=== PATIENT | male | born 1970 | race Caucasian/White ===

== ENCOUNTER → 2018-08-01 | Outpatient (CLI) | payer BC | LOC: ZCOL.LAB 10:28 | DX: E11.621 Type 2 diabetes mellitus with foot ulcer (principal) ==

== ENCOUNTER 2018-08-22 12:57 | Inpatient (IN) | payer BC ==
[~2018-08-22] VITALS: Ht 184.2 cm; Wt 83.9 kg
[~2018-08-22 12:57] MED LIST: ALEVE 220MG220 MG PO; CUBICIN 500MG500 MG IV; FARXIGA5 PO; FLAGYL500 MG PO; HUMALOG100 U/ML SQ; LANTUS SOLOS100 U/ML SQ; OMNICEF 300MG300 MG PO
[2018-09-08] VITALS (13 sets, daily range): BP systolic 120–146; BP diastolic 74–98; PULSE 85–95; TEMP 98.3–99.5
--- NOTE | 2018-09-08 08:16 | NUR ---
Patient arrives to pre-op SDC room 1. He ambulates with steady giat. His left foot has a bandage covering his wounds. He is alert and oriented. Procedure confirmed, denies any questions, and verbalizes understanding. VSS and WNL on room air. Breath sounds clear bilaterally to auscultation. Clear S1S2 heart tones heard with regular rate noted. No edema noted. Patient has numbness/tingling in all four extremities at baseline. Chronic pain in left foot. +2 radial, PT, and DP pulses noted. PERRLA. Mom is at the bedside. Patient has a single lumen PICC line in his right arm. PICC flushes easily and has positive blood return. PICC hooked to IVF for surgery. Call light usage taught and within reach.
--- NOTE | 2018-09-08 08:27 | NUR ---
Patient resting comfortably in room. Denies any needs at this time.
--- NOTE | 2018-09-08 08:49 | NUR ---
Patient to PACU with anesthesia.
--- NOTE | 2018-09-08 11:50 | NUR ---
PATIENT ADMITED INTO ROOM 348 POSST OP LEFT BKA. LLE DRESSING IS CD&I WITH ACEWRAP, IMMOBILIZER AND ICE PACK INPLACE. PATIENT DENIES PAIN TO LLE. PATIENT HAS HX OF DM WITH AN AIC OF 14. POST OP BS OF 128. PATIENT REQUESTING POP, GAVE DIET COKE. NO CARNEY INPLACE. NO C/O N/V. IV FLUIDS INFUSING INTO RIGHT PICC LINE. HEAD TO TOE ASSESSMENT COMPLETE. MOTHER AT BEDSIDE. ORIENTED TO ROOM. CALL LIGHT IN REACH.
--- NOTE | 2018-09-09 01:06 | NUR ---
Patient doing well this shift. Pain started about 2100. Started with one norco, and this was not effective, so the second dose was given. Patient stated pain at 4/10. Patient requested more pain medication. Oxycodone 10mg given. Noted to be effective. Patient resting quietly with eyes closed. Will continue to monitor.
[2018-09-09 03:32] VITALS: BP 149/79; PULSE 99; TEMP 98.3
--- NOTE | 2018-09-09 08:00 | NUR ---
PATIENT IS RESTING IN BED THIS MORNING. PATIENT IS A&OX4. VSS. BOWEL SOUNDS ACTIVE ALL FOUR QUADRANTS. PATIENT TOLERATING DIET WITHOUT ANY COMPLAINTS OF N/V. LEFT BKA DRESSED WITH BULKY GAUZE AND EBER WRAP DRESSING IS CD&I. KNEE IMMOBILIZER IN PLACE. RLE PEDAL PULSE STRONG. UNSTAGED HEALING ULCER TO RIGHT GREAT TOE WITH A HYPAFIX DRESSING IN PLACE AND CD&I. POSITIVE FEMORAL PULSE TO LEFT GROIN. PICC LINE TO E. CALL LIGHT WITHIN REACH. NO NEEDS AT THIS TIME.
[2018-09-09 08:02] VITALS: BP 150/88; PULSE 99; TEMP 99.7
--- NOTE | 2018-09-09 11:19 | NUR ---
REPORT GIVEN TO THELMA VIRAMONTES.
[2018-09-09 11:33] VITALS: BP 147/87; PULSE 98; TEMP 99.7
--- NOTE | 2018-09-09 11:53 | NUR ---
REPORT FROM MARIYA RENEE.
--- NOTE | 2018-09-09 14:21 | NUR ---
Initial visit; Patient and his mom thanked for looking in on Bandar and keeping him in her prayers.
--- NOTE | 2018-09-09 14:39 | NUR ---
SW met with patient about discharge planning. Patient reports he normally lives independently at home with his life partner, but he is planning to stay at his mothers house for a while. Patient's PCP is Dr Luz Marina Ashby and he obtains prescriptions from [facility] in [place]. Patient does not normally use any DME or home health services. Patient reports his friend is loaning him a wheelchair but the walker he was given is not tall enough for him. SW reported she can assist him with obtaining the correct sized walker. Patient was provided DME [employer] choices. Patient chose [facility] and signed choice form. Patient does not require any post acute rehab but he will start outpatient PT/OT once Orth[facility] orders it. Patient has been cleared to discharge later today. SW faxed walker order to [facility]. They will deliver before discharge.
[2018-09-09 15:33] VITALS: BP 140/86; PULSE 101; TEMP 100.2
[2018-09-09] MEDS ORDERED: NORCO 325 MG-7.1 TAB PO (15:56)
[2018-09-09] MEDS ORDERED: ROXICODONE 55 MG/TAB PO (15:57)
[2018-09-09] MEDS ORDERED: SENNA-S 50 MG-81 TAB PO (15:57)
--- NOTE | 2018-09-09 17:23 | NUR ---
DRESSING CHANGE COMPLETED AFTER PICC LINE REMOVAL BY SID WORM GROWER. PT TOLERATED WELL. DRESSING CHANGE WITH 4X4 ABS, SOFT ROLL AND EBER. DISCHARGE INSTRUCTIONS REVIEWED WITH PATIENT AND FAMILY. PT TAKEN BY WHEEL CHAIR TO FRONT.
== END 2018-09-09 17:27 | disposition home or self-care (01) | DRG 240 ==
LOC: INPTSU 09-08 07:27 → SURG 09-08 07:27
PROVIDERS: ADMIT Orthopaedic Surgery
PROC: 02PY33Z Removal of Infusion Device from Great Vessel, Percutaneous Approach (ICD-10-PCS; 2018-09-08)
PROC: 0Y6J0Z2 Detachment at Left Lower Leg, Mid, Open Approach (ICD-10-PCS; principal; 2018-09-08 09:30)
DX: E11.52 Type 2 diabetes mellitus with diabetic peripheral angiopathy with gangrene (principal); L97.426 Non-pressure chronic ulcer of left heel and midfoot with bone involvement without evidence of necrosis; L03.116 Cellulitis of left lower limb; I96 Gangrene, not elsewhere classified; S81.801A Unspecified open wound, right lower leg, initial encounter; F41.9 Anxiety disorder, unspecified; E11.42 Type 2 diabetes mellitus with diabetic polyneuropathy; D64.9 Anemia, unspecified; F17.210 Nicotine dependence, cigarettes, uncomplicated; F32.9 Major depressive disorder, single episode, unspecified; Z79.4 Long term (current) use of insulin; Z86.19 Personal history of other infectious and parasitic diseases; Z90.89 Acquired absence of other organs; Z83.3 Family history of diabetes mellitus
CPT/HCPCS: J0690; J1650; J1815; J1885; J2250; J2370; J2405; J2704; J2765; J2795; J3010; J7030; L1830

== ENCOUNTER 2018-09-08 07:00 | Outpatient (RCR) | payer BC ==
[2018-08-08 12:20] VITALS: BP 114/76; PULSE 98; TEMP 99.3
[2018-08-08 13:26] LABS: MEAN CELL VOLUME 84 fl (80.0-100.0); MEAN CORPUSCULAR HGB CONC 33 g/dl (33.0-37.0); MEAN PLATELET VOLUME 10.7 fl (7.4-10.4); PLATELET COUNT 279 K/mm3 (130-400); RED BLOOD COUNT 3.55 M/mm3 (4.20-5.60); REDCELL DISTRIBUTION WIDTH-CV 13.2 % (11.5-14.5)
[2018-08-08 13:30] LABS: HEMATOCRIT 29.8 % (42.0-52.0); HEMOGLOBIN 9.8 g/dl (13.5-18.0); MEAN CORPUSCULAR HEMOGLOBIN 28 pg (27.0-31.0)
[2018-08-08 13:39] LABS: ALANINE AMINOTRANSFERASE 15 U/L (21-72); ALBUMIN 3.4 gm/dL (3.5-5.0); ALKALINE PHOSPHATASE 133 U/L (50-136); ANION GAP 7 mmol/L (7-16); AST,SGOT 33 U/L (15-37); BILIRUBIN,TOTAL 0.4 mg/dL (0.0-1.0); BLOOD UREA NITROGEN 22 mg/dL (9-20); C-REACTIVE PROTEIN 3.1 mg/dL (0.0-0.9); CARBON DIOXIDE 30 mmol/L (22-30); CHLORIDE 95 mmol/L (98-107); CREATININE, serum 0.61 (0.66-1.25); GLUCOSE 280 mg/dL (74-106); POTASSIUM 4.3 mmol/L (3.4-5.0); SODIUM 133 mmol/L (137-145)
[2018-08-08 13:42] LABS: CREATINE KINASE < 20 U/L (55-170)
[2018-08-08 13:54] LABS: ERYTHROCYTE SEDIMENTATION RATE > 140 mm/hr (0-15)
[2018-08-09 08:45] VITALS: BP 118/78; PULSE 96; TEMP 99
[2018-08-10 08:51] VITALS: BP 109/76; PULSE 89; TEMP 98.5
[2018-08-11 08:40] VITALS: BP 99/64; PULSE 88; TEMP 98.6
[2018-08-12 08:30] VITALS: BP 104/63; PULSE 87; TEMP 98.2
[2018-08-13 09:00] VITALS: BP 94/59; PULSE 87; TEMP 98.2
[2018-08-14 08:45] VITALS: BP 108/70; PULSE 90; TEMP 99.1
[2018-08-15 08:44] LABS: MEAN CELL VOLUME 86 fl (80.0-100.0); MEAN CORPUSCULAR HGB CONC 32 g/dl (33.0-37.0); MEAN PLATELET VOLUME 10.6 fl (7.4-10.4); PLATELET COUNT 217 K/mm3 (130-400); RED BLOOD COUNT 3.59 M/mm3 (4.20-5.60); REDCELL DISTRIBUTION WIDTH-CV 13.6 % (11.5-14.5)
[2018-08-15 08:50] LABS: HEMATOCRIT 30.9 % (42.0-52.0); HEMOGLOBIN 9.8 g/dl (13.5-18.0); MEAN CORPUSCULAR HEMOGLOBIN 27 pg (27.0-31.0)
--- NOTE | 2018-08-15 08:50 | NUR ---
PICC intact right upper arm with sterile dressing change done with insertion site cleansed with chloraprep x 1, chlorhexidine impregnated disk applied, skin prep, stat lock, and tegaderm applied. no signs or sypmptoms of IV complications noted. no concerns voiced. re-wrapped with abena to protect catheter.
[2018-08-15 09:03] LABS: ALANINE AMINOTRANSFERASE 10 U/L (21-72); ALBUMIN 3.3 gm/dL (3.5-5.0); ALKALINE PHOSPHATASE 116 U/L (50-136); ANION GAP 7 mmol/L (7-16); AST,SGOT 22 U/L (15-37); BILIRUBIN,TOTAL 0.3 mg/dL (0.0-1.0); BLOOD UREA NITROGEN 15 mg/dL (9-20); C-REACTIVE PROTEIN 1.9 mg/dL (0.0-0.9); CALCIUM 8.8 mg/dL (8.4-10.2); CARBON DIOXIDE 31 mmol/L (22-30); CHLORIDE 100 mmol/L (98-107); CREATININE, serum 0.54 (0.66-1.25); GLUCOSE 299 mg/dL (74-106); POTASSIUM 4.2 mmol/L (3.4-5.0); SODIUM 138 mmol/L (137-145); TOTAL PROTEIN 7.6 gm/dL (6.4-8.2)
[2018-08-15 09:04] LABS: CREATINE KINASE < 20 U/L (55-170)
[2018-08-15 09:12] VITALS: BP 119/74; PULSE 89; TEMP 98.6
[2018-08-15 09:13] LABS: ERYTHROCYTE SEDIMENTATION RATE > 140 mm/hr (0-15)
[2018-08-16 08:52] VITALS: BP 140/87; PULSE 88; TEMP 98.1
[2018-08-17 09:12] VITALS: BP 136/74; PULSE 88; TEMP 97.9
[2018-08-18 08:30] VITALS: BP 124/72; PULSE 93; TEMP 98.7
[2018-08-19 09:17] VITALS: BP 124/77; PULSE 85; TEMP 97.8
[2018-08-20 09:13] VITALS: BP 98/55; PULSE 92; TEMP 98.7
[2018-08-21 08:43] VITALS: BP 128/83; PULSE 85; TEMP 98.2
--- NOTE | 2018-08-21 09:00 | NUR ---
PICC intact right upper arm. With sterile technique right upper arm PICC dressing change done with insertion site cleansed with ChloraPrep 1, chlorhexidine impregnated disc applied, skin prep, StatLock, and Tegaderm applied. No signs or symptoms of IV complications noted. No concerns voiced. Arm wrapped with Ronen to protect catheter. Patient to continue with cares and express unit.
[2018-08-22 09:27] VITALS: BP 106/64; PULSE 92; TEMP 98.5
[2018-08-22 09:54] LABS: HEMOGLOBIN 11.3 g/dl (13.5-18.0); MEAN CELL VOLUME 87 fl (80.0-100.0); MEAN CORPUSCULAR HEMOGLOBIN 27 pg (27.0-31.0); MEAN CORPUSCULAR HGB CONC 32 g/dl (33.0-37.0); MEAN PLATELET VOLUME 11.4 fl (7.4-10.4); PLATELET COUNT 219 K/mm3 (130-400); RED BLOOD COUNT 4.13 M/mm3 (4.20-5.60); REDCELL DISTRIBUTION WIDTH-CV 14.6 % (11.5-14.5)
[2018-08-22 10:07] LABS: ALANINE AMINOTRANSFERASE 9 U/L (21-72); ALBUMIN 3.8 gm/dL (3.5-5.0); ALKALINE PHOSPHATASE 96 U/L (50-136); ANION GAP 8 mmol/L (7-16); AST,SGOT 32 U/L (15-37); BILIRUBIN,TOTAL 0.4 mg/dL (0.0-1.0); BLOOD UREA NITROGEN 25 mg/dL (9-20); C-REACTIVE PROTEIN 0.6 mg/dL (0.0-0.9); CALCIUM 9.4 mg/dL (8.4-10.2); CARBON DIOXIDE 30 mmol/L (22-30); CHLORIDE 98 mmol/L (98-107); CREATININE, serum 0.61 (0.66-1.25); GLUCOSE 337 mg/dL (74-106); POTASSIUM 4.8 mmol/L (3.4-5.0); SODIUM 136 mmol/L (137-145); TOTAL PROTEIN 8.4 gm/dL (6.4-8.2)
[2018-08-22 10:18] LABS: CREATINE KINASE < 20 U/L (55-170)
[2018-08-22 10:23] LABS: HEMATOCRIT 35.9 % (42.0-52.0)
[2018-08-22 11:44] LABS: ERYTHROCYTE SEDIMENTATION RATE 63 mm/hr (0-15)
[2018-08-23 08:57] VITALS: BP 118/89; PULSE 88; TEMP 98.6
[2018-08-24 08:45] VITALS: BP 118/89; PULSE 88; TEMP 98.6
[2018-08-25 08:36] VITALS: BP 127/78; PULSE 88; TEMP 98.6
[2018-08-26 08:43] VITALS: BP 110/67; PULSE 86; TEMP 98.1
[2018-08-27 08:56] VITALS: BP 105/71; PULSE 88; TEMP 98.5
[2018-08-28 08:38] VITALS: BP 97/62; PULSE 93; TEMP 97.9
--- NOTE | 2018-08-29 08:35 | NUR ---
PICC intact right upper arm. With sterile technique right upper arm PICC dressing change done with insertion site cleansed with ChloraPrep 1, chlorhexidine impregnated disc applied, skin prep, StatLock, and Tegaderm applied. No signs or symptoms of IV complications noted. No concerns voiced. Arm wrapped with Ronen to protect catheter. Continue with cares in the express unit. Patient voiced understanding of instructions.
[2018-08-29 08:37] LABS: BASO % 0.7 % (0.0-2.0); EOS # 0.2 (0.0-0.7); EOS % 4.6 % (0-4.0); GRAN # 2.4 (1.4-6.5); GRAN % 58.1 % (42.2-75.2); HEMATOCRIT 37.4 % (42.0-52.0); HEMOGLOBIN 11.5 g/dl (13.5-18.0); LYMPH # 1.1 (1.2-3.4); LYMPH % 26.9 % (20.0-51.0); MEAN CELL VOLUME 88 fl (80.0-100.0); MEAN CORPUSCULAR HEMOGLOBIN 27 pg (27.0-31.0); MEAN CORPUSCULAR HGB CONC 31 g/dl (33.0-37.0); MEAN PLATELET VOLUME 11.6 fl (7.4-10.4); MONO # 0.4 (0.1-0.6); MONO % 9.2 % (1.7-9.3); PLATELET COUNT 162 K/mm3 (130-400); RED BLOOD COUNT 4.24 M/mm3 (4.20-5.60); REDCELL DISTRIBUTION WIDTH-CV 14.6 % (11.5-14.5)
[2018-08-29 08:46] LABS: PROTHROMBIN TIME 12.1 SECONDS (9.7-12.8)
[2018-08-29 08:51] LABS: ALANINE AMINOTRANSFERASE 12 U/L (21-72); ALBUMIN 3.7 gm/dL (3.5-5.0); ALKALINE PHOSPHATASE 72 U/L (50-136); ANION GAP 6 mmol/L (7-16); AST,SGOT 32 U/L (15-37); BILIRUBIN,TOTAL 0.4 mg/dL (0.0-1.0); BLOOD UREA NITROGEN 22 mg/dL (9-20); CARBON DIOXIDE 29 mmol/L (22-30); CHLORIDE 106 mmol/L (98-107); CREATINE KINASE 28 U/L (55-170); CREATININE, serum 0.55 (0.66-1.25); GLUCOSE 181 mg/dL (74-106); POTASSIUM 4.7 mmol/L (3.4-5.0); SODIUM 141 mmol/L (137-145); TOTAL PROTEIN 7.8 gm/dL (6.4-8.2)
[2018-08-29 08:57] LABS: IRON,SERUM 78 ug/dL (35-150)
[2018-08-29 08:59] LABS: ERYTHROCYTE SEDIMENTATION RATE 47 mm/hr (0-15)
[2018-08-29 09:06] LABS: TOTAL IRON BINDING CAPACITY 283 ug/dL (261-462)
[2018-08-29 09:07] VITALS: BP 106/67; PULSE 88; TEMP 98.5
[2018-08-29 09:16] LABS: COLLECTION METHOD CLEAN CATCH
[2018-08-29 09:21] LABS: C-REACTIVE PROTEIN < 0.5 mg/dL (0.0-0.9)
[2018-08-29 09:22] LABS: MUCOUS Present /lpf; PH 5 (5-8); SQUAMOUS EPITHELIAL None Seen /hpf; URINE APPEARANCE Clear; URINE BACTERIA None Seen /hpf; URINE BILIRUBIN Negative (NEGATIVE); URINE BLOOD Negative (NEGATIVE); URINE COLOR Yellow; URINE GLUCOSE 3+ (NEGATIVE); URINE KETONE Negative (NEGATIVE); URINE LEUKOCYTE ESTERASE Negative (NEGATIVE); URINE NITRATE Negative (NEGATIVE); URINE PROTEIN(semi-quant) Negative (NEGATIVE); URINE RBC 0-2 /hpf; URINE UROBILINOGEN Negative (NEGATIVE)
[2018-08-29 09:33] LABS: FERRITIN 199 ng/mL (18-464)
[2018-08-29 15:55] LABS: FOLATE (FOLIC ACID) 15.2 ng/mL (7.0-31.4)
[2018-08-30 08:31] VITALS: BP 117/77; PULSE 93; TEMP 97.9
[2018-08-31 08:31] VITALS: BP 107/64; PULSE 94; TEMP 97.8
[2018-09-01 08:43] VITALS: BP 114/67; PULSE 85; TEMP 98.1
[2018-09-02 08:43] VITALS: BP 128/80; PULSE 90; TEMP 98.1
[2018-09-03 08:46] VITALS: BP 120/78; PULSE 80; TEMP 98.2
[2018-09-04 08:30] VITALS: BP 115/81; PULSE 92; TEMP 98
[2018-09-05 08:42] VITALS: BP 129/82; PULSE 88; TEMP 98.2
[2018-09-05 08:50] LABS: HEMOGLOBIN 11.5 g/dl (13.5-18.0); MEAN CELL VOLUME 88 fl (80.0-100.0); MEAN CORPUSCULAR HEMOGLOBIN 28 pg (27.0-31.0); MEAN CORPUSCULAR HGB CONC 32 g/dl (33.0-37.0); MEAN PLATELET VOLUME 12.5 fl (7.4-10.4); PLATELET COUNT 115 K/mm3 (130-400); RED BLOOD COUNT 4.15 M/mm3 (4.20-5.60); REDCELL DISTRIBUTION WIDTH-CV 14.4 % (11.5-14.5)
[2018-09-05 08:52] LABS: HEMATOCRIT 36.4 % (42.0-52.0)
[2018-09-05 09:02] LABS: ALANINE AMINOTRANSFERASE 11 U/L (21-72); ALBUMIN 3.8 gm/dL (3.5-5.0); ALKALINE PHOSPHATASE 63 U/L (50-136); ANION GAP 8 mmol/L (7-16); AST,SGOT 24 U/L (15-37); BILIRUBIN,TOTAL 0.5 mg/dL (0.0-1.0); BLOOD UREA NITROGEN 28 mg/dL (9-20); CALCIUM 9.1 mg/dL (8.4-10.2); CARBON DIOXIDE 27 mmol/L (22-30); CHLORIDE 102 mmol/L (98-107); CREATINE KINASE 30 U/L (55-170); CREATININE, serum 0.63 (0.66-1.25); POTASSIUM 4.5 mmol/L (3.4-5.0); SODIUM 137 mmol/L (137-145); TOTAL PROTEIN 7.5 gm/dL (6.4-8.2)
[2018-09-05 09:20] LABS: ERYTHROCYTE SEDIMENTATION RATE 34 mm/hr (0-15)
[2018-09-05 09:43] LABS: C-REACTIVE PROTEIN < 0.5 mg/dL (0.0-0.9)
[2018-09-05 09:44] LABS: GLUCOSE 420 mg/dL (74-106)
[2018-09-06 08:48] VITALS: BP 121/84; PULSE 89; TEMP 97.8
[2018-09-07 08:38] VITALS: BP 97/64; PULSE 91; TEMP 97.9
[~2018-09-08] VITALS: Ht 185.4 cm; Wt 79.0 kg
[2018-09-08 06:56] VITALS: BP 122/80; PULSE 93; TEMP 98.1
--- NOTE | 2018-09-08 08:35 | NUR ---
Per pt report he will be in hospital post procedure.
[2018-09-09] MEDS ORDERED: NORCO 325 MG-7.1 TAB PO (15:56)
[2018-09-09] MEDS ORDERED: SENNA-S 50 MG-81 TAB PO (15:57)
[2018-09-09] MEDS ORDERED: ROXICODONE 55 MG/TAB PO (15:57)
== END 2018-09-08 08:36 | disposition home or self-care (01) ==
LOC: EUO 07:00
PROVIDERS: Family Medicine; Nurse Practitioner
DX: T14.8XXA Other injury of unspecified body region, initial encounter (principal); M86.9 Osteomyelitis, unspecified; E13.621 Other specified diabetes mellitus with foot ulcer
CPT/HCPCS: C1751; J0878

== ENCOUNTER → 2019-05-27 | Outpatient (CLI) | payer BC ==
[~2019-05-27] MED LIST changes: +NORCO 325 MG-7.1 TAB PO; +ROXICODONE 55 MG/TAB PO; +SENNA-S 50 MG-81 TAB PO
== END ==
LOC: ZCOL.LAB 13:44
DX: S88.112A Complete traumatic amputation at level between knee and ankle, left lower leg, initial encounter (principal); E11.9 Type 2 diabetes mellitus without complications; Z87.39 Personal history of other diseases of the musculoskeletal system and connective tissue

== ENCOUNTER → 2019-06-04 | Outpatient (CLI) | payer BC | LOC: COL.RAD 07:29 | DX: S88.112A Complete traumatic amputation at level between knee and ankle, left lower leg, initial encounter (principal); M86.162 Other acute osteomyelitis, left tibia and fibula; E11.621 Type 2 diabetes mellitus with foot ulcer | CPT/HCPCS: A9585 ==

== ENCOUNTER 2019-07-15 08:57 | Day surgery (SDC) | payer BC ==
[~2019-07-15] VITALS: Ht 185.4 cm; Wt 85.5 kg
[2019-07-15] VITALS (7 sets, daily range): BP systolic 98–141; BP diastolic 72–83; PULSE 87–102; TEMP 97.2–98.9
[~2019-07-15 08:57] MED LIST changes: +AMBIEN 10MG10 MG PO; +CLEOCIN HCL300 MG PO; +CYMBALTA 60MG60 MG PO; +D3-5050000 IU PO; +JARDIANCE10 PO; +ULTRAM 50MG TAB50 MG PO; +ZANAFLEX 4MG TAB4 MG PO
[2019-07-15] MEDS ORDERED: PRINIVIL5 MG PO (09:19)
[2019-07-15] MEDS ORDERED: JARDIANCE10 PO (09:47)
[2019-07-15] MEDS ORDERED: CEPHALEXIN500 M1 PO (09:49)
[2019-07-15] MEDS ORDERED: NORCO 325 MG-51 TAB PO (11:53)
--- NOTE | 2019-07-15 13:25 | NUR ---
Patient returns to room 6 per cart and is awake and alert. Ronen wrap dressing clean and dry on the left AKA site and elevated on pillow. Ice on the incisional area. IV fluids infusing and site is free of redness. Patient sipping on diet Pepsi. Temp 97.6. Sats 100 on 2L per nasal cannula. Siderails up x2 and call light in reach.
--- NOTE | 2019-07-15 13:40 | NUR ---
Room air sats 100%. Denies pain or nausea. Talking on the phone.
--- NOTE | 2019-07-15 13:55 | NUR ---
Resting and offers no complaints of discomfort.
--- NOTE | 2019-07-15 14:10 | NUR ---
Continues to rest without complaints of discomfort. Sipping on diet Pepsi and eating crackers.
--- NOTE | 2019-07-15 14:25 | NUR ---
States that he is beginning to have some soreness at the incisional site. Elevated on pillow and ice to the incisional area.
--- NOTE | 2019-07-15 14:38 | NUR ---
[place] 7.5mg one tab for pain at 3/10. Dressing clean and dry.
--- NOTE | 2019-07-15 14:40 | NUR ---
IV discontinued. Site is free of redness.
--- NOTE | 2019-07-15 14:45 | NUR ---
Patient dresses self. Dressing remains clean and dry. Dismissal instructions given and voices understanding of home cares and follow up on 07/22/2019 in the office.
--- NOTE | 2019-07-15 14:55 | NUR ---
Patient dismissed to home driven by mother and taken to the front door per wheelchair and assisted into vehicle by this RN with instructions in hand. Provided script for [facility].
== END 2019-07-15 14:55 | disposition home or self-care (01) ==
LOC: SDCO 08:57
DX: T87.81 Dehiscence of amputation stump (principal); E11.9 Type 2 diabetes mellitus without complications; F17.210 Nicotine dependence, cigarettes, uncomplicated; Z79.4 Long term (current) use of insulin; Z90.89 Acquired absence of other organs; Z89.612 Acquired absence of left leg above knee; Z80.9 Family history of malignant neoplasm, unspecified
CPT/HCPCS: J0690; J1100; J1170; J2370; J2405; J2704; J3010; J7030

== ENCOUNTER → 2020-02-01 | Outpatient (CLI) | payer BC ==
[~2020-02-01] MED LIST changes: +AMOXICILLIN 8751 TAB PO; +CEPHALEXIN500 M1 PO; +DOXYCYCLINE HY100 MG PO; +LAMICTAL 100MG100 MG PO; +LANTUS100 U/ML SQ; +NORCO 325 MG-51 TAB PO; +PERCOCET 325 MG1 TA2 PO; +PRINIVIL5 MG PO; +ROCEPHIN 2GM VIAL21 IV
== END ==
LOC: ZCOL.LAB 16:05
DX: S61.401A Unspecified open wound of right hand, initial encounter (principal)

== ENCOUNTER 2020-02-02 11:34 | Inpatient (IN) | payer BC, MEDICAID ==
[~2020-02-02] VITALS: Ht 182.9 cm; Wt 88.6 kg
[~2020-02-02 11:34] MED LIST changes: -AMOXICILLIN 8751 TAB PO; -DOXYCYCLINE HY100 MG PO; -LAMICTAL 100MG100 MG PO; -LANTUS100 U/ML SQ; -PERCOCET 325 MG1 TA2 PO; -ROCEPHIN 2GM VIAL21 IV
[2020-02-02] MEDS ORDERED: LANTUS100 U/ML SQ (12:19)
[2020-02-02] MEDS ORDERED: AMOXICILLIN 8751 TAB PO (12:19)
[2020-02-02] MEDS ORDERED: LAMICTAL 100MG100 MG PO (12:19)
[2020-02-02] MEDS ORDERED: DOXYCYCLINE HY100 MG PO (12:20)
[2020-02-02 13:14] LABS: BASO % 0.4 % (0.0-2.0); EOS # 0.1 (0.0-0.7); EOS % 1.7 % (0-4.0); GRAN % 76.5 % (42.2-75.2); HEMOGLOBIN 11.9 g/dl (13.5-18.0); LYMPH # 1.2 (1.2-3.4); LYMPH % 15.9 % (20.0-51.0); MEAN CELL VOLUME 86 fl (80.0-100.0); MEAN CORPUSCULAR HEMOGLOBIN 28 pg (27.0-31.0); MEAN CORPUSCULAR HGB CONC 32 g/dl (33.0-37.0); MEAN PLATELET VOLUME 10.3 fl (7.4-10.4); MONO # 0.4 (0.1-0.6); MONO % 4.5 % (1.7-9.3); PLATELET COUNT 229 K/mm3 (130-400); RED BLOOD COUNT 4.29 M/mm3 (4.20-5.60)
[2020-02-02 13:22] LABS: ALBUMIN 3.4 gm/dL (3.5-5.0); BILIRUBIN,TOTAL 0.6 mg/dL (0.0-1.0); C-REACTIVE PROTEIN 3.1 mg/dL (0.0-0.9); CREATININE, serum 0.65 (0.66-1.25); POTASSIUM 4.2 mmol/L (3.4-5.0); TOTAL PROTEIN 7.2 gm/dL (6.4-8.2)
[2020-02-02 13:35] LABS: ERYTHROCYTE SEDIMENTATION RATE 58 mm/hr (0-15)
[2020-02-02] MEDS ORDERED: PERCOCET 325 MG1 TA2 PO ×2 (16:44)
--- NOTE | 2020-02-02 17:20 | NUR ---
Vancomycin Initial Dosing Pharmacy Note Ordering provider: HELIO JIANG Indication/duration: POSSIBLE OSTEO LABS: WBC 7.8, SCr 0.65, CrCl >100 Recommendation: VANCOMYCIN 17 MG/KG Loading dose: 2 grams (IN ED) Maintenance dose: 1.5 grams every 12 hours Trough goal: 15-20 ug/mL. TROUGH 02/03 @1530
[2020-02-02 18:52] VITALS: BP 127/86; PULSE 90; TEMP 98.7
[2020-02-02 18:54] VITALS: BP 127/86; PULSE 90; TEMP 98.7
--- NOTE | 2020-02-02 19:46 | NUR ---
Pt. sitting up in bed at this time. Pt. is A&OX3. assessment complete. INT to lt. hand patent. Pt. denies pain or other needs, call light within reach.
[2020-02-02 20:10] VITALS: BP 141/81; PULSE 89; TEMP 98.8
[2020-02-02 23:52] VITALS: BP 124/77; PULSE 83; TEMP 98.7
[2020-02-03 04:11] VITALS: BP 136/87; PULSE 84; TEMP 98
[2020-02-03 07:48] VITALS: BP 130/79; PULSE 87; TEMP 98.4
--- NOTE | 2020-02-03 14:49 | NUR ---
Initial visit; Patient thanked Rn Occupational Health for looking in on him and offering God's blessings.
[2020-02-03 16:30] VITALS: BP 143/90; PULSE 91; TEMP 98.8
--- NOTE | 2020-02-03 16:56 | NUR ---
CALLED AND LEFT MESSAGE WITH DR. AYALA FOR ID CONSULT.
--- NOTE | 2020-02-03 20:00 | NUR ---
DR AYALA RETURNED CALL FOR CONSULT. NEW ORDERS PLACED FOR ROCEPHIN AND HYUN FORDE.
[2020-02-03 20:30] VITALS: BP 124/76; PULSE 94; TEMP 99.1
--- NOTE | 2020-02-03 20:30 | NUR ---
HS MEDS GIVEN WELL DOSE OF IV ROCEPHIN 2GM, AMBIEN AND ZANAFLEX PO. IS ALERT AND ORIENTED X4. REPORTS ONE LOOSE STOOL. HAS LEFT UPPER ARM PICC, FLUSHES WELL. IS AN AKA ON THE LEFT. INDEPENDENT IN ROOM WITH CRUTCHES. RT WRIST WRAPPED WITH DRSG AND EBER.
[2020-02-04 00:54] VITALS: BP 100/58; PULSE 83; TEMP 98.8
[2020-02-04 04:04] VITALS: BP 121/77; PULSE 88; TEMP 98.4
--- NOTE | 2020-02-04 04:18 | NUR ---
VANCOMYCIN INFUSING TO LEFT PICC WITHOUT PROBLEM. DENIES PAIN TO RIGHT WRIST. EMPTIED URINAL FOR 800CC OF YELLOW URINE.
--- NOTE | 2020-02-04 05:45 | NUR ---
IV Vanco complete, PICC flushed.
[2020-02-04 07:05] LABS: BASO % 0.3 % (0.0-2.0); EOS # 0.1 (0.0-0.7); EOS % 2.1 % (0-4.0); GRAN # 4.6 (1.4-6.5); GRAN % 68.6 % (42.2-75.2); HEMOGLOBIN 11.9 g/dl (13.5-18.0); LYMPH # 1.4 (1.2-3.4); LYMPH % 20.9 % (20.0-51.0); MEAN CELL VOLUME 86 fl (80.0-100.0); MEAN CORPUSCULAR HEMOGLOBIN 28 pg (27.0-31.0); MEAN CORPUSCULAR HGB CONC 33 g/dl (33.0-37.0); MEAN PLATELET VOLUME 10.7 fl (7.4-10.4); MONO # 0.5 (0.1-0.6); MONO % 7.1 % (1.7-9.3); PLATELET COUNT 223 K/mm3 (130-400); RED BLOOD COUNT 4.27 M/mm3 (4.20-5.60); REDCELL DISTRIBUTION WIDTH-CV 13.2 % (11.5-14.5)
[2020-02-04 07:12] LABS: HEMATOCRIT 36.6 % (42.0-52.0)
[2020-02-04 07:25] LABS: CREATININE, serum 0.73 (0.66-1.25); POTASSIUM 4.3 mmol/L (3.4-5.0)
[2020-02-04 08:38] VITALS: BP 142/77; PULSE 86; TEMP 98.6
--- NOTE | 2020-02-04 09:12 | NUR ---
AIVS AT BEDSIDE.
--- NOTE | 2020-02-04 09:20 | NUR ---
Reviewed PICC insertion chest x ray on [facility]. PICC intact with sterile dressing change done with insertion site cleansed with chloraprep x 1, catheter pulled back 3 cm to 2 cm marking on catheter, skin prep, stat lock, chlorhexidine impregnated disk applied, and tegaderm. RN informed.
[2020-02-04 13:37] VITALS: BP 143/88; PULSE 92; TEMP 98.5
--- NOTE | 2020-02-04 14:30 | NUR ---
PATIENT PUSHED CALL LIGHT AND YELLED AT THE SURGICAL CODER ABOUT HIS DISCHARGE. NURSING ENTERED ROOM AND PATIENT STARTED YELLING AT NURSING ABOUT HIS DISCHARGE AND BECAME BELLIGERENT. PATIENT WENT ON AND ON ABOUT HOW "THIS HOSPITAL AND THE DOCTORS ARE HOLDING HIM UP". PATIENT DEMANDING TO LEAVE. NURSING TOLD PATIENT THE PHYSICIAN AND SS WERE WORKING ON ARRANGING OUTPATIENT ANTIBIOTICS. PATIENT DIDN'T SEEM INTERESTED IN ANYTHING NURSING HAD TO SAY, JUST WENT ON TO COMPLAIN ABOUT HOW THIS IS INCONVENIENCING HIM.
--- NOTE | 2020-02-04 15:10 | NUR ---
HOSPITALIST AT BEDSIDE. SEE ORDERS.
[2020-02-04] MEDS ORDERED: ROCEPHIN 2GM VIAL21 IV (15:23)
--- NOTE | 2020-02-04 15:30 | NUR ---
PATIENT APPOLOGIZED TO NURSING FOR HIS BEHAVIOR. PATIENT WAS JUST VERY FRUSTERATED AND SAID HE WAS SORRY FOR TAKING IT OUT ON THE STAFF. NURSING HAPPILY ACCEPTED HIS APPOLOGY. PATIENT HOPING TO DISCHARGE HOME THIS EVENING.
[2020-02-04 15:46] VITALS: BP 119/68; PULSE 86; TEMP 98.6
--- NOTE | 2020-02-04 16:19 | NUR ---
The patient is to discharge home today, 02/03. [facility] met with the patient to complete intake. The patient lives in [place] with his life partner, Cameron. The patient has a left above knee amputation. He has a prosthesis and is independent. The patient's PCP is Dr. Ashby and receives medications from [facility] in [place]. The patient does not have advanced directives in the EMR but is in the process of completing them. The patient will return home and drive himself. The patient is needing IV antibiotics and has been to [facility] in the past and would like to use them again. The patient had a PICC placed. [facility] staffed with RNCM on 02/02 and 02/03. She has not been able to get through to the insurance. She advised for the patient to contact his insurance. [facility] informed the patient to contact his insurance and advised him that he may have out of pocket costs. He stated his mother could assist with cost. [facility] faxed orders to El[facility] with [facility]. She reports everything needed was received and the patient should be at the ED for his first dose on 02/04 at 0800. [facility] informed the patient. He was in agreeance. [facility] collaborated the above information with the patient's nurse.
--- NOTE | 2020-02-04 16:35 | NUR ---
PATIENT IS DISCHARGING HOME VIA WC TO PERSONAL VEHICLE. GAVE DISCHARGE INSTRUCTIONS, DRESSING SUPPLIES, ANTIBIOTIC SCRIPT, AND DISCUSSED F/U APTS. APPLIED NEW DRESSING TO RIGHT WRIST BEFORE DISCHARGE. PATIENT DISCHARGING WITH PICC LINE INPLACE. ANSWERED ALL QUESTIONS/CONCERNS. PATIENT DISCHARGED.
[2020-02-04 16:46] LABS: HIV 1/2 Antibodies Non-Reactive; HIV-1p24 Antigen Non-Reactive
[2020-02-04 21:51] LABS: HEPATITIS B SURFACE ANTIGEN Negative (Negative); HEPATITIS C VIRUS ANTIBODY Negative (Negative)
[2020-02-05 02:18] LABS: HEPATITIS B CORE AB,TOTAL Positive (())
== END 2020-02-04 16:35 | disposition home health service (06) | DRG 872 ==
LOC: COL.ER 11:34 → JCC 15:56
PROVIDERS: Emergency Medicine; Hospitalist; Internal Medicine Infectious Disease; Nurse Practitioner Primary Care; ADMIT Student in an Organized Health Care Education/Training Program
DX: A41.9 Sepsis, unspecified organism (principal); M86.8X3 Other osteomyelitis, forearm; E11.69 Type 2 diabetes mellitus with other specified complication; F32.9 Major depressive disorder, single episode, unspecified; F17.210 Nicotine dependence, cigarettes, uncomplicated; I10 Essential (primary) hypertension; G47.00 Insomnia, unspecified; Z89.512 Acquired absence of left leg below knee; Z79.4 Long term (current) use of insulin
CPT/HCPCS: 99239; A9585; C1751; J0696; J1650; J1815; J2543; J3370; J7050

== ENCOUNTER 2020-02-08 08:00 | Outpatient (RCR) | payer BC, MEDICAID ==
[2020-02-06 08:43] VITALS: BP 102/62; PULSE 94; TEMP 98.5
[~2020-02-08] VITALS: Ht 182.9 cm; Wt 86.6 kg
[~2020-02-08 08:00] MED LIST changes: +AMOXICILLIN 8751 TAB PO; +DOXYCYCLINE HY100 MG PO; +LAMICTAL 100MG100 MG PO; +LANTUS100 U/ML SQ; +PERCOCET 325 MG1 TA2 PO; +ROCEPHIN 2GM VIAL21 IV
[2020-02-08 08:41] VITALS: BP 126/77; PULSE 121; TEMP 98.4
[2020-02-08 08:44] LABS: BASO # 0.1 (0.0-0.2); BASO % 0.6 % (0.0-2.0); EOS % 0.5 % (0-4.0); GRAN # 6.4 (1.4-6.5); GRAN % 74.6 % (42.2-75.2); HEMOGLOBIN 12.4 g/dl (13.5-18.0); LYMPH # 1.4 (1.2-3.4); LYMPH % 16.7 % (20.0-51.0); MEAN CELL VOLUME 85 fl (80.0-100.0); MEAN CORPUSCULAR HEMOGLOBIN 28 pg (27.0-31.0); MEAN CORPUSCULAR HGB CONC 33 g/dl (33.0-37.0); MEAN PLATELET VOLUME 10.5 fl (7.4-10.4); MONO # 0.6 (0.1-0.6); MONO % 7.1 % (1.7-9.3); PLATELET COUNT 282 K/mm3 (130-400); RED BLOOD COUNT 4.45 M/mm3 (4.20-5.60); REDCELL DISTRIBUTION WIDTH-CV 13.5 % (11.5-14.5)
[2020-02-08 08:51] LABS: BILIRUBIN,TOTAL 0.5 mg/dL (0.0-1.0); CALCIUM 9.4 mg/dL (8.4-10.2); CREATININE, serum 0.79 (0.66-1.25); POTASSIUM 3.8 mmol/L (3.4-5.0); TOTAL PROTEIN 8.1 gm/dL (6.4-8.2)
--- NOTE | 2020-02-08 13:52 | NUR ---
graphic pre press trades worker was requested by patient to transfer his IV antibiotics/PICC care to the [facility] as it is closer to his home address. Worker contacted Mary at the [facility] and faxed orders and clinical information. Nurse rn case mgr contacted insurance, a second time and was notified that a pre-auth is not required. Nurse rn case mgr obtained reference numbers: [id number] from [facility]. This information was given to the [facility]. Worker contacted Patient and advised the above information and that patient should present at the [facility] on 02/09/2020 at 8:00am to their main entrance. Patient verbalized much appreciation. Worker notified Harshal, with the express unit, of the above information.
== END 2020-02-08 16:45 | disposition home or self-care (01) ==
LOC: EUO 08:00
PROVIDERS: Internal Medicine Infectious Disease
DX: Z45.2 Encounter for adjustment and management of vascular access device (principal)
CPT/HCPCS: J0696